=== PATIENT | male | born 1965 | race Caucasian/White ===

== ENCOUNTER 2020-01-10 16:03 | Inpatient (IN) | payer SELFPAY ==
[2020-01-10] MEDS ORDERED: ASPIRIN 81 MG CHEWABLE TABLET ONE (16:44)
[2020-01-10 16:47] LABS: Basophils % 0.9 % (0-1.3); Hematocrit 46.8 % (39.6-49.0); Lymphocytes % 19.1 % (15.3-44.8); MPV 10.5 fL (7.6-11.3); RBC Red Blood Cell Count 4.89 M/uL (4.33-5.43)
[2020-01-10 16:50] LABS: Protime INR 0.96
--- NOTE | 2020-01-10 17:17 | RAD REPORT ---
EXAM DESCRIPTION: CT - Chest Abdomen W Con - 01/10/2020 5:04 pm CLINICAL HISTORY: CHEST PAIN, abdominal pain, shortness of breath COMPARISON: No comparisons TECHNIQUE: During dynamic enhancement using 100 milliliters nonionic IV contrast, axial 5 millimeter thick images of the chest, abdomen and pelvis were obtained. Biphasic technique was utilized through the abdomen. Oral contrast was administered. All CT scans are performed using dose optimization technique as appropriate and may include automated exposure control or mA/KV adjustment according to patient size. FINDINGS: No suspicious mass or infiltrate in the lung parenchyma. Minimal early emphysema changes a re evident in the upper lung serrano. A few granulomatous calcifications are present. Largest calcifie d nodule is 11 mm in the right upper lung field at the aortic arch level. No pneumothorax or pleural effusion. No chest wall mass or abnormal axillary lymphadenopathy seen. Mediastinal and hilar regio ns show no mass or lymphadenopathy. No significant cardiac finding. No pericardial thickening or eff usion. The liver, spleen and pancreas show no focal findings. Liver attenuation is borderline fatty infiltra negro. Stones are evident in a contracted gallbladder. No biliary tree dilatation. No pericholecystic f luid. Symmetric renal function is seen with no hydronephrosis, mass or other significant finding. No adren al abnormalities. No dilated bowel loops or focal ball bowel wall thickening. No free air, free fluid or inflammatory stranding. No hernia, mass or bulky lymphadenopathy. No significant bone or vascular finding. IMPRESSION: CT chest imaging shows no suspicious mass, lymphadenopathy or other significant finding. Nonacute findings detailed in the body of the report. No acute CT abdomen or pelvis finding. Patient does have cholelithiasis but no definitive evidence fo r acute cholecystitis. Borderline to mild fatty infiltration of the liver.
--- NOTE | 2020-01-10 17:17 | RAD REPORT ---
EXAM DESCRIPTION: RAD - Chest Single View - 01/10/2020 4:48 pm CLINICAL HISTORY: CHEST PAIN COMPARISON: No remote imaging TECHNIQUE: AP portable chest image was obtained 01/10/2020 4:48 pm . FINDINGS: No peripheral mass or consolidation seen. Patient has numerous small granulomatous type ca lcifications scattered in the lung parenchyma. No mediastinal or hilar mass evident. Heart and vascul ature are normal. No measurable pleural effusion and no pneumothorax. No acute bone finding. Minimal scoliotic curvature seen. No acute aortic findings suspected. IMPRESSION: No acute cardiopulmonary process. Numerous small granulomatous calcifications seen in the lung parenchyma.
[2020-01-10 17:33] LABS: ALT/SGPT 305 U/L (12-78); AST/SGOT 330 U/L (15-37); Alkaline Phosphatase 148 U/L (45-117); BUN Blood Urea Nitrogen 8 mg/dL (7-18); Bicarbonate 24 mmol/L (21-32); Bilirubin Direct 0.6 mg/dL (0-0.2); Bilirubin Total 0.9 mg/dL (0.2-1.0); Lipase 772 U/L (73-393); NT PRO-BNP 157 pg/mL (<125); Potassium 4.2 mmol/L (3.5-5.1); Protein, Total 7.6 g/dL (6.4-8.2); Sodium Level 127 mmol/L (136-145); Troponin (Emerg Dept Use Only) < 0.02 ng/mL (0.0-0.045)
[2020-01-10 17:36] LABS: Glucose Level 723 mg/dL (74-106)
[2020-01-10] MEDS ORDERED: NA CHLORIDE 0.9% 2,000 ML ONE (17:48)
--- NOTE | 2020-01-10 19:43 | ER ---
Nurse's Notes [facility] Name: Gabriel Morales Age: 54 yrs Sex: Male : 1965 Arrival Date: 01/10/2020 Time: 16:05 Bed 5 Private MD: Diagnosis: Diabetes mellitus due to underlying condition with hyperglycemia;Chest pain, unspecified;Elevated liver enzymes Presentation: 01/09 16:15 Chief complaint: Patient states: chest pressure off and on for 2-3 weeks, has had em cough, clear sputum, today pressure became constant and also reports shortness of breath, denies fever, N/V/D, has lost 30 pounds in less than 2 months without trying. Coronavirus screen: Surgical mask placed on patient. Patient moved to private room, placed in contact and droplet isolation with eye protection until further assessment. Patient reports a cough. Patient reports shortness of breath or difficulty breathing. Patient denies measured and/or subjective temperature greater than 100.4F prior to today's visit. Patient denies travel on a cruise ship or to a country the [facility] currently lists as an affected area. Patient denies contact with known and/or suspected case of COVID-19. Ebola Screen: Patient negative for fever greater than or equal to 101.5 degrees Fahrenheit, and additional compatible Ebola Virus Disease symptoms Patient denies exposure to infectious person. Patient denies travel to an Ebola-affected area in the 21 days before illness onset. No symptoms or risks identified at this time. Initial Sepsis Screen: Does the patient meet any 2 criteria? No. Patient's initial sepsis screen is negative. Does the patient have a suspected source of infection? Yes: Productive cough/pneumonia. Risk Assessment: Do you want to hurt yourself or someone else? Patient reports no desire to harm self or others. Onset of symptoms was December 29, 2019. 16:15 Method Of Arrival: Wheelchair em 16:15 Acuity: ALEJANDRO 3 em Historical: - Allergies: 16:19 No Known Allergies; em - Home Meds: 16:19 None [Active]; em - PMHx: 16:19 None; em - PSHx: 16:19 None; em - Immunization history:: Adult Immunizations not up to date. - Social history:: Smoking status: Patient reports the use of cigarette tobacco products, smokes one pack cigarettes per day. Screenin:31 Abuse screen: Denies threats or abuse. Nutritional screening: No deficits noted. hb Tuberculosis screening: No symptoms or risk factors identified. Fall Risk None identified. Assessment: 16:32 Pain: Pain does not radiate. hb 16:32 Pain: Pain began 2-3 weeks. hb 16:35 General: Appears in no apparent distress. Behavior is calm, cooperative. Pain: Pain hb currently is 6 out of 10 on a pain scale. Neuro: Level of Consciousness is awake, alert, obeys commands, Oriented to person, place, time, situation. Cardiovascular: Reports chest pain, Heart tones S1 S2 present Capillary refill < 3 seconds Patient's skin is warm and dry. Respiratory: Airway is patent Respiratory effort is even, unlabored, Respiratory pattern is regular, symmetrical, Breath sounds are clear bilaterally. GI: No signs and/or symptoms were reported involving the gastrointestinal system. : No signs and/or symptoms were reported regarding the genitourinary system. EENT: No signs and/or symptoms were reported regarding the EENT system. Derm: Skin is pink, warm \T\ dry. Musculoskeletal: No signs and/or symptoms reported regarding the musculoskeletal system. 17:45 Reassessment: Patient appears in no apparent distress at this time. Patient and/or hb family updated on plan of care and expected duration. Pain level reassessed. Patient is alert, oriented x 3, equal unlabored respirations, skin warm/dry/pink. 18:30 Reassessment: Patient appears in no apparent distress at this time. Patient and/or hb family updated on plan of care and expected duration. Pain level reassessed. Patient is alert, oriented x 3, equal unlabored respirations, skin warm/dry/pink. 19:20 Reassessment: Patient appears in no apparent distress at this time. Patient and/or wh family updated on plan of care and expected duration. Pain level reassessed. Patient is alert, oriented x 3, equal unlabored respirations, skin warm/dry/pink. 20:35 Reassessment: Patient appears in no apparent distress at this time. No changes from previously documented assessment. Patient and/or family updated on plan of care and expected duration. Pain level reassessed. Patient is alert, oriented x 3, equal unlabored respirations, skin warm/dry/pink. Explained POC need for admit, MD at bedside. Vital Signs: 16:15 BP 159 / 93; Pulse 77; Resp 18; Temp 98.1(O); Pulse Ox 97% on R/A; Weight 67.13 kg; em Height 5 ft. 7 in. (170.18 cm); Pain 6/10; 17:45 BP 147 / 88; Pulse 76; Resp 15; Pulse Ox 99% on R/A; Pain 5/10; hb 18:38 BP 151 / 96; Pulse 63; Resp 17; Pulse Ox 98% on R/A; tw2 19:30 BP 164 / 95; Pulse 61; Resp 18; Pulse Ox 99% on R/A; wh 20:30 BP 150 / 95; Pulse 60; Resp 18; Pulse Ox 96% on R/A; wh 16:15 Body Mass Index 23.18 (67.13 kg, 170.18 cm) em ED Course: 16:05 Patient arrived in ED. mr 16:19 Triage completed. em 16:20 Arm band placed on. em 16:21 [facility]C [facility] snw 16:21 Zeus Brandon MD is Attending Physician. snw 16:31 Latricia Jung, RN is Primary Nurse. hb 16:31 Bed in low position. Call light in reach. cardiac monitor on. Pulse ox on. NIBP on. hb Warm blanket given. Verbal reassurance given. 16:32 Patient maintains SpO2 saturation greater than 95% on room air. hb 16:34 Inserted saline lock: 20 gauge in right forearm, using aseptic technique. Blood hb collected. 16:48 XRAY Chest (1 view) In Process Unspecified. EDMS 17:04 CT Chest Abdomen W/ Contrast In Process Unspecified. EDMS 19:41 Varun Boggs is Hospitalizing Provider. snw 21:30 No provider procedures requiring assistance completed. Patient admitted, IV remains in wh place. Administered Medications: 16:38 Drug: Aspirin Chewable Tablet 324 mg Route: PO; hb 17:41 Follow up: Response: No adverse reaction tw2 17:50 Drug: NS 0.9% 2000 ml Route: IV; Rate: 1 bolus; Site: right forearm; hb 20:41 Follow up: Response: No adverse reaction; IV Status: Completed infusion Outcome: 19:42 Decision to Hospitalize by Provider. snw 21:30 Admitted to ER Hold. Please see [facility] for further documentation. 21:30 Condition: stable 21:30 Instructed on the need for admit. 01/10 09:41 Patient left the ED. Signatures: Dispatcher [employer] Susan Epps, WEARING APPAREL FOLDER-C WEARING APPAREL FOLDER-Csnw AlyLiana mr Moser, Rubens, RN Mirlande Quevedo RN RN ss Baxter, Heather, RN RN Milly Mathew RN RN [facility] Jose Ahmadi
--- NOTE | 2020-01-10 19:43 | EDPHYS ---
Physician Documentation [facility] Name: Gabriel Morales Age: 54 yrs Sex: Male : 1965 Arrival Date: 01/10/2020 Time: 16:05 Bed 5 Private MD: ED Physician Zeus Brandon HPI: 01/09 16:31 This 54 yrs old Male presents to ER via Wheelchair with complaints of Chest snw Pressure. 16:31 The patient or guardian reports chest pain that is located primarily in the anterior snw chest wall. Onset: gradually. Associated signs and symptoms: Pertinent positives: cough, shortness of breath, Pertinent negatives: abdominal pain, lightheadedness, nausea, near syncope, palpitations, recent travel. The chest pain is described as a pressure. Duration: The patient or guardian reports multiple episodes, that wax and wane. Severity of pain: At its worst the pain was moderate. It is unknown whether or not the patient has had similar symptoms in the past. The patient has not recently seen a physician. smokes 1 ppd, smokes weed, + hepatitis C dx in the 90s, no treatment. Historical: - Allergies: 16:19 No Known Allergies; em - Home Meds: 16:19 None [Active]; em - PMHx: 16:19 None; em - PSHx: 16:19 None; em - Immunization history:: Adult Immunizations not up to date. - Social history:: Smoking status: Patient reports the use of cigarette tobacco products, smokes one pack cigarettes per day. ROS: 16:29 Constitutional: Negative for fever, chills, + large weight loss over past 2 months snw without trying, Eyes: Negative for injury, pain, redness, and discharge, ENT: Negative for injury, pain, and discharge, Neck: Negative for injury, pain, and swelling. 16:29 Abdomen/GI: Negative for abdominal pain, nausea, vomiting, diarrhea, and constipation, Back: Negative for injury and pain, : Negative for injury, bleeding, discharge, and swelling, MS/Extremity: Negative for injury and deformity, Skin: Negative for injury, rash, and discoloration, Neuro: Negative for headache, weakness, numbness, tingling, and seizure. 16:29 Cardiovascular: Positive for chest pain, of the chest. 16:29 Respiratory: Positive for cough, shortness of breath. Exam: 16:29 Constitutional: This is a well developed, well nourished patient who is awake, alert, snw and in no acute distress. Head/Face: Normocephalic, atraumatic. Eyes: Pupils equal round and reactive to light, extra-ocular motions intact. Lids and lashes normal. Conjunctiva and sclera are non-icteric and not injected. Cornea within normal limits. Periorbital areas with no swelling, redness, or edema. ENT: Nares patent. No nasal discharge, no septal abnormalities noted. Tympanic membranes are normal and external auditory canals are clear. Oropharynx with no redness, swelling, or masses, exudates, or evidence of obstruction, uvula midline. Mucous membranes moist. Neck: Trachea midline, no thyromegaly or masses palpated, and no cervical lymphadenopathy. Supple, full range of motion without nuchal rigidity, or vertebral point tenderness. No Meningismus. Chest/axilla: Normal chest wall appearance and motion. Nontender with no deformity. No lesions are appreciated. Cardiovascular: Regular rate and rhythm with a normal S1 and S2. No gallops, murmurs, or rubs. Normal PMI, no JVD. No pulse deficits. Respiratory: Lungs have equal breath sounds bilaterally, clear to auscultation and percussion. No rales, rhonchi or wheezes noted. No increased work of breathing, no retractions or nasal flaring. Abdomen/GI: Soft, non-tender, with normal bowel sounds. No distension or tympany. No guarding or rebound. No evidence of tenderness throughout. Back: No spinal tenderness. No costovertebral tenderness. Full range of motion. Skin: Warm, dry with normal turgor. Normal color with no rashes, no lesions, and no evidence of cellulitis. MS/ Extremity: Pulses equal, no cyanosis. Neurovascular intact. Full, normal range of motion. Neuro: Awake and alert, GCS 15, oriented to person, place, time, and situation. Cranial nerves II-XII grossly intact. Motor strength 5/5 in all extremities. Sensory grossly intact. Cerebellar exam normal. Normal gait. Psych: Awake, alert, with orientation to person, place and time. Behavior, mood, and affect are within normal limits. 16:34 ECG was reviewed by the Attending Physician. snw Vital Signs: 16:15 BP 159 / 93; Pulse 77; Resp 18; Temp 98.1(O); Pulse Ox 97% on R/A; Weight 67.13 kg; em Height 5 ft. 7 in. (170.18 cm); Pain 6/10; 17:45 BP 147 / 88; Pulse 76; Resp 15; Pulse Ox 99% on R/A; Pain 5/10; hb 18:38 BP 151 / 96; Pulse 63; Resp 17; Pulse Ox 98% on R/A; tw2 19:30 BP 164 / 95; Pulse 61; Resp 18; Pulse Ox 99% on R/A; wh 20:30 BP 150 / 95; Pulse 60; Resp 18; Pulse Ox 96% on R/A; wh 16:15 Body Mass Index 23.18 (67.13 kg, 170.18 cm) em MDM: 16:29 Patient medically screened. snw 19:40 ECG:. The patient was given aspirin in the Emergency Department. Data reviewed: vital snw signs, nurses notes, lab test result(s), EKG, radiologic studies. Data interpreted: Pulse oximetry: on room air is 98 %. Interpretation: normal. Counseling: I had a detailed discussion with the patient and/or guardian regarding: the historical points, exam findings, and any diagnostic results supporting the discharge/admit diagnosis, the presence of at least one elevated blood pressure reading (>120/80) during this emergency department visit, lab results, radiology results, the need for further work-up and treatment in the hospital. Physician consultation: Varun Boggs was called at 19:40, was contacted at 19:40, regarding admission, to the telemetry unit. 01/09 16:23 Order name: Basic Metabolic Panel snw 01/09 16:23 Order name: CBC with Diff; Complete Time: 16:51 snw 01/09 16:23 Order name: LFT's; Complete Time: 17:36 snw 01/09 16:23 Order name: Magnesium; Complete Time: 17:36 snw 01/09 16:23 Order name: NT PRO-BNP; Complete Time: 17:36 snw 01/09 16:23 Order name: PT-INR; Complete Time: 16:51 snw 01/09 16:23 Order name: Troponin (emerg Dept Use Only); Complete Time: 17:36 snw 01/09 16:23 Order name: Basic Metabolic Panel; Complete Time: 17:36 EDMS 01/09 16:43 Order name: Lipase; Complete Time: 17:36 EDMS 01/09 16:58 Order name: CREATININE WHOLE BLOOD; Complete Time: 17:10 EDMS 01/09 18:31 Order name: Alpha Fetoprotein-Tumor Marker EDMS 01/09 19:41 Order name: Glucose, Ancillary Testing; Complete Time: 19:42 EDMS 01/09 16:23 Order name: XRAY Chest (1 view); Complete Time: 17:19 snw 01/09 16:23 Order name: EKG; Complete Time: 16:24 snw 01/09 16:23 Order name: Cardiac monitoring; Complete Time: 16:40 snw 01/09 16:23 Order name: EKG - Nurse/Tech; Complete Time: 16:40 snw 01/09 16:23 Order name: IV Saline Lock; Complete Time: 16:40 snw 01/09 16:23 Order name: CT Chest Abdomen W/ Contrast; Complete Time: 17:19 snw 01/09 23:57 Order name: Troponin I; Complete Time: 23:58 EDMS 01/09 23:57 Order name: Thyroid Stimulating Hormone; Complete Time: 23:58 EDMS 01/10 05:47 Order name: Comprehensive Metabolic Panel EDMS 01/10 05:47 Order name: Phosphorus EDMS 01/10 05:47 Order name: Lipid Profile EDMS 01/10 05:47 Order name: Magnesium EDMS 01/10 06:06 Order name: CBC with Automated Diff EDMS 01/10 06:38 Order name: Manual Differential EDMS 01/09 16:23 Order name: Labs collected and sent; Complete Time: 16:40 snw 01/09 16:23 Order name: O2 Per Protocol; Complete Time: 16:40 snw 01/09 16:23 Order name: O2 Sat Monitoring; Complete Time: 16:40 snw 01/09 19:16 Order name: FSBS; Complete Time: 19:30 snw EC:34 Rate is 75 beats/min. Rhythm is regular. QRS [place] is Normal. CO interval is normal. QRS snw interval is normal. Clinical impression: NSR w/ Non-specific ST/T Changes. Administered Medications: 16:38 Drug: Aspirin Chewable Tablet 324 mg Route: PO; hb 17:41 Follow up: Response: No adverse reaction tw2 17:50 Drug: NS 0.9% 2000 ml Route: IV; Rate: 1 bolus; Site: right forearm; hb 20:41 Follow up: Response: No adverse reaction; IV Status: Completed infusion Disposition: 01/10/20 19:42 Hospitalization ordered by Varun Boggs for Observation. Preliminary diagnosis are Diabetes mellitus due to underlying condition with hyperglycemia, Chest pain, unspecified, Elevated liver enzymes. - Bed requested for Telemetry/MedSurg (observation). - Status is Observation. ss - Condition is Stable. - Problem is new. - Symptoms are unchanged. Addendum: 01/12/2020 18:18 Co-signature as Attending Physician, Zeus Brandon MD. m a2 Signatures: Dispatcher [employer] EDIL Susan Downs, COMPUTER SYSTEMS AUDITOR-C COMPUTER SYSTEMS AUDITOR-Csnw Rubens Moser, ESHA BALBUENA Mirlande Powell RN RN Jana Franco RN RN tl1 Latricia Jung RN RN Zeus Brandon MD MD maMilly Cardoza RN 2 Jose Ahmadi Corrections: (The following items were deleted from the chart) 01/09 16:43 16:34 LIPASE+C.LAB.BRZ ordered. EDIL EDMS 18:31 16:33 Miscellaneous Lab Test+R.LAB.BRZ ordered. EDIL EDMS 21:27 19:42 Hospitalization Ordered by Varun Boggs for Observation. Preliminary diagnosis tl1 is Diabetes mellitus due to underlying condition with hyperglycemia; Chest pain, unspecified; Elevated liver enzymes. Bed requested for Telemetry/MedSurg (observation). Status is Observation. Condition is Stable. Problem is new. Symptoms are unchanged. snw 01/10 05:45 01/09 21:27 01/10/2020 19:42 Hospitalization Ordered by Varun Boggs for Observation. tl1 Preliminary diagnosis is Diabetes mellitus due to underlying condition with hyperglycemia; Chest pain, unspecified; Elevated liver enzymes. Bed requested for [facility] ER HOLD. Status is Observation. Condition is Stable. Problem is new. Symptoms are unchanged. tl1 01/10 09:41 05:45 01/10/2020 19:42 Hospitalization Ordered by Varun Boggs for Observation. ss Preliminary diagnosis is Diabetes mellitus due to underlying condition with hyperglycemia; Chest pain, unspecified; Elevated liver enzymes. Bed requested for Telemetry/MedSurg (observation). Status is Observation. Condition is Stable. Problem is new. Symptoms are unchanged. tl1
--- NOTE | 2020-01-10 20:13 | EKG ---
Test Date: 2020-01-10 Test Time: 16:32:49 Interior Plant Caretaker: ABHIJEET MEASUREMENT RESULTS: Intervals: Rate: 70 [place]: 138 QRSD: 100 QT: 410 QTc: 442 [place]: P: 74 [place]: 138 QRS: 74 T: 65 INTERPRETIVE STATEMENTS: Normal sinus rhythm Normal ECG No previous ECG available for comparison Electronically Signed On 01-10-20 20:13:09 CDT by Mega Nichols
--- NOTE | 2020-01-10 21:09 | P.HP ---
Certification for Inpatient Patient admitted to: Inpatient With expected LOS: >2 Midnights Practitioner: I am a practitioner with admitting privileges, knowledge of patient current condition, hospital course, and medical plan of care. Services: Services provided to patient in accordance with Admission requirements found in Title 42 Section 412.3 of the Code of Federal Regulations Patient History Date of Service: 01/10/20 Reason for admission: Increased thirst, chest pain. History of Present Illness: 54-year-old gentleman with a history of hepatitis-C presented emergency depa rtment with a complaint of chest pain of onset this morning. Patient also report increased thirst and increased urination. He reports about 30 lb weight loss over a period of 1 month. His lab work in the ED shows severe hyperglycemia with blood glucose up to 700. His liver enzymes are also elevated. Troponin is negative. EKG shows nonspecific ST T wave changes. Patient is being admitted for chest pain rule out and management of new onset diabetes with hyperglycemia. - Past Medical/Surgical History -: Chronic hepatitis-C -: Orthopedic surgery - Family History Mother -: Diabetes - Social History Smoking Status: Current every day smoker Alcohol use: Yes CD- Drugs: No Place of Residence: Home Review of Systems Other: Patient denied abdominal pain, he denied any nausea or vomiting or diarrhea. He denied any fever. He denied any cough. Except as documented, all other systems reviewed and negative. Physical Examination - Physical Exam General: Alert, In no apparent distress, Oriented x3 HEENT: Mucous membr. moist/pink, Sclerae nonicteric Neck: Supple, JVD not distended Respiratory: Clear to auscultation bilaterally, Normal air movement Cardiovascular: No edema, Regular rate/rhythm, Normal S1 S2 Capillary refill: <2 Seconds Gastrointestinal: Normal bowel sounds, Soft and benign, Non-distended, No tenderness Musculoskeletal: No swelling, No erythema Integumentary: No rashes Neurological: Normal speech, Normal strength at 5/5 x4 extr - Studies Laboratory Data (last 24 hrs) 01/10/20 16:34: Lipase Cancelled 01/10/20 16:30: PT 11.3, INR 0.96 01/10/20 16:30: WBC 5.2, Hgb 15.3, Hct 46.8, Plt Count 101 L 01/10/20 16:30: Sodium 127 L, Potassium 4.2, BUN 8, Creatinine 1.07, Glucose 723 H*, Magnesium 2.0, Total Bilirubin 0.9, AST 330 H*, ALT 305 H*, Alkaline Phosphatase 148 H, Lipase 772 H Assessment and Plan - Problems (Diagnosis) (1) Chest pain Current Visit: Yes Status: Acute (2) Diabetes mellitus Current Visit: Yes Status: Acute (3) Elevated lipase Current Visit: Yes Status: Acute (4) Hepatitis C infection Current Visit: Yes Status: Acute (5) Essential hypertension Current Visit: Yes Status: Acute - Plan Admit to the medical floor. IV hydration with normal saline. Start insulin sliding scale and Lantus insulin Check hemoglobin A1c Trend troponin Check lipid profile. Start aspirin. Start metoprolol and TREVOR inhibitor - Advance Directives Does patient have a Living Will: No Does patient have a Durable POA for Healthcare: No
[2020-01-10 22:50] VITALS: BMI 23.1
[2020-01-10] MEDS ORDERED: GLUCAGON 1 MG/VIAL IM PRN (22:53)
[2020-01-10] MEDS ORDERED: ONDANSETRON 4 MG/2 ML VIAL IV PRN (22:53)
[2020-01-10] MEDS ORDERED: D50W 25 GM/50 ML SYRINGE/VIAL IV PRN (22:53)
[2020-01-10] MEDS: NA CHLORIDE 0.9% 1,000 ML IV SCH (22:53)
[2020-01-10] MEDS ORDERED: NITROGLYCERIN 0.4 MG/TAB SL ONE (23:43)
[2020-01-10] MEDS ORDERED: NA CHLORIDE 0.9% 1,000 ML ONE (23:45)
[2020-01-10] MEDS: NITROGLYCERIN 0.4 MG/TAB SL PRN (23:45)
[2020-01-10 23:56] LABS: Troponin I < 0.02 ng/mL (0.0-0.045)
[2020-01-11] MEDS: NITROGLYCERIN 0.4 MG/TAB SL PRN
[2020-01-11 05:41] LABS: ALT/SGPT 246 U/L (12-78); AST/SGOT 243 U/L (15-37); Albumin 2.6 g/dL (3.4-5.0); Alkaline Phosphatase 123 U/L (45-117); BUN Blood Urea Nitrogen 7 mg/dL (7-18); Bicarbonate 21 mmol/L (21-32); Bilirubin Total 0.9 mg/dL (0.2-1.0); Glucose Level 338 mg/dL (74-106); HDL Cholesterol 17 mg/dL (40-60); LDL Cholesterol, Calculated 74 (<130); Magnesium 1.8 mg/dL (1.8-2.4); Phosphorus 2.6 mg/dL (2.5-4.9); Protein, Total 6.5 g/dL (6.4-8.2); Sodium Level 134 mmol/L (136-145)
[2020-01-11 06:06] LABS: Absolute Lymphocytes (CBC) 1.4 K/uL (0.7-4.9); Hematocrit 43.4 % (39.6-49.0); Lymphocytes % 27.8 % (15.3-44.8); MPV 10.9 fL (7.6-11.3)
[2020-01-11 06:38] LABS: Blood Morphology Comment NOT SEEN (NOT SEEN); Platelet Estimate DECR
[2020-01-11] MEDS: ENOXAPARIN 40 MG/0.4 ML SQ SCH ×2 (09:00→10:16)
--- NOTE | 2020-01-11 09:43 | RAD REPORT ---
EXAM DESCRIPTION: US - Liver Only - 01/11/2020 9:23 am CLINICAL HISTORY: high LFTS COMPARISON: No comparisons FINDINGS: The liver demonstrates diffuse fatty infiltration.Diffusely heterogenous appearance to the liver parenchyma seen.No focal liver lesion or intrahepatic biliary dilatation.No evidence of portal vein thrombosis. Spleen is moderately enlarged. Gallstones are present gallbladder. IMPRESSION: Fatty liver with mild liver enlargement. Cholelithiasis. Moderate splenomegaly.
[2020-01-11] MEDS: NA CHLORIDE 0.9% 1,000 ML IV SCH ×3 (10:13→21:47)
[2020-01-11] MEDS: MAGNESIUM SULFATE 1 gm IVPB 1 GM/100 ML BAG IV ONE ×2 (10:14→10:15)
[2020-01-11] MEDS: ASPIRIN EC 81 MG TAB PO SCH (10:14)
[2020-01-11] MEDS: lisinopriL 10 MG TAB PO SCH (10:14)
[2020-01-11] MEDS: METOPROLOL TAR 50 MG TAB PO SCH ×2 (10:15→21:42)
[2020-01-11] MEDS: INSULIN GLARGINE 100 UNITS/ML SQ SCH (10:16)
[2020-01-11] MEDS: INSULIN -REGULAR HUMAN 50 UNIT/0.5 ML ML SQ SCH ×4 (10:17→21:43)
--- NOTE | 2020-01-11 11:15 | EKG ---
Test Date: 2020-01-10 Test Time: 23:09:59 International Tax Manager: SUOTH MEASUREMENT RESULTS: Intervals: Rate: 59 HI: 114 QRSD: 90 QT: 436 QTc: 431 [place]: P: 53 HI: 114 QRS: 73 T: 50 INTERPRETIVE STATEMENTS: Sinus bradycardia Otherwise normal ECG Compared to ECG 01/10/2020 16:33:14 Sinus rhythm no longer present ST (T wave) deviation no longer present Electronically Signed On 01-11-20 11:13:31 CDT by Mega Nichols
--- NOTE | 2020-01-11 11:15 | EKG ---
Test Date: 2020-01-10 Test Time: 16:33:14 Web Mobile Designer: ABHIJEET MEASUREMENT RESULTS: Intervals: Rate: 75 NC: 140 QRSD: 96 QT: 408 QTc: 455 Kellogg: P: 73 NC: 140 QRS: 75 T: 81 INTERPRETIVE STATEMENTS: Normal sinus rhythm Possible Left atrial enlargement ST abnormality, possible digitalis effect Abnormal ECG Compared to ECG 01/10/2020 16:32:49 ST (T wave) deviation now present Electronically Signed On 01-11-20 11:13:41 CDT by Mega Nichols
--- NOTE | 2020-01-11 14:06 | P.PN ---
Subjective Date of Service: 01/11/20 Chief Complaint: Increased thirst, chest pain. Subjective: Improving (Patient is doing well. He is tolerating diet. He has been started on lantus after a new diagnosis of Diabetes mellitus) Physical Examination - Vital Signs Temperature: 97.3 F Blood Pressure: 135/70 Pulse: 56 Respirations: 16 Pulse Ox (%): 98 - Physical Exam General: Alert, In no apparent distress, Cooperative, Other (No jaundice) HEENT: Atraumatic, Normocephalic, EOMI Neck: Supple Respiratory: Clear to auscultation bilaterally, Normal air movement Cardiovascular: No edema, Normal pulses, Regular rate/rhythm, Normal S1 S2 Gastrointestinal: Normal bowel sounds, Soft and benign, Non-distended Musculoskeletal: No clubbing, No swelling, No contractures, No erythema, No tenderness, No warmth Integumentary: No rashes, No breakdown, No tenderness/swelling, No erythema, No warmth, No cyanosis Neurological: Normal speech, Sensation intact, Normal reflexes 2+, Normal affect - Studies Laboratory Data (last 24 hrs) 01/10/20 16:34: Lipase Cancelled 01/10/20 16:30: PT 11.3, INR 0.96 01/10/20 16:30: WBC 5.2, Hgb 15.3, Hct 46.8, Plt Count 101 L 01/10/20 16:30: Sodium 127 L, Potassium 4.2, BUN 8, Creatinine 1.07, Glucose 723 H*, Magnesium 2.0, Total Bilirubin 0.9, AST 330 H*, ALT 305 H*, Alkaline Phosphatase 148 H, Lipase 772 H Assessment & Plan - Problems (Diagnosis) (1) Diabetes mellitus Current Visit: Yes Status: Acute (2) Elevated lipase Current Visit: Yes Status: Acute (3) Essential hypertension Current Visit: Yes Status: Acute (4) Hepatitis C infection Current Visit: Yes Status: Acute Physician Review Additional Text: Assessment Patient is a 54 year old male with a known PMH of Hepatitis C who presented with chest pain. First 2 EKGs were unremarkable but the 3rd showed Possible Left atrial enlargement and mild ST abnormalities. He has a 2-D echo pending. Additional work up revealed severe hyperglycemia. He was started on insulin. A1c pending. He was also found to have elevated LFTs. Liver US showed fatty liver, cholelithiasis and splenomegaly. Chest pain New onset diabetes mellitus and hyperglycemia Hepatitis C Transaminitis PLAN Continue telemetry until ACS is ruled out Follow up 2nd troponin Follow up 2-D echo Start insulin sliding scale, continue lantus 10 untis QAM Check A1c Consult surgery for possible gallbladder removal Check HepC viral load
[2020-01-11] MEDS: ACETAMIN/CAFFEINE/BUTALB TAB PO PRN (16:19)
[2020-01-12] MEDS: NA CHLORIDE 0.9% 1,000 ML IV SCH ×2 (01:33→12:38)
[2020-01-12 06:30] LABS: BUN Blood Urea Nitrogen 8 mg/dL (7-18); Bicarbonate 23 mmol/L (21-32); Glucose Level 251 mg/dL (74-106); Magnesium 1.8 mg/dL (1.8-2.4); Potassium 3.4 mmol/L (3.5-5.1); Sodium Level 136 mmol/L (136-145)
[2020-01-12] MEDS ORDERED: POTASSIUM 25 MEQ EFFERV TAB PO ONE (06:37)
[2020-01-12] MEDS ORDERED: MAGNESIUM SULFATE 1 gm IVPB 1 GM/100 ML BAG IV ONE (06:38)
[2020-01-12] MEDS: ASPIRIN EC 81 MG TAB PO SCH (08:22)
[2020-01-12] MEDS: lisinopriL 10 MG TAB PO SCH (08:22)
[2020-01-12] MEDS: METOPROLOL TAR 50 MG TAB PO SCH ×2 (08:22→20:52)
[2020-01-12] MEDS: INSULIN GLARGINE 100 UNITS/ML SQ SCH (08:23)
[2020-01-12] MEDS: INSULIN -REGULAR HUMAN 50 UNIT/0.5 ML ML SQ SCH ×4 (08:24→20:53)
[2020-01-12] MEDS ORDERED: INSULIN GLARGINE 100 UNITS/ML SQ ONE (08:30)
[2020-01-12] MEDS: ENOXAPARIN 40 MG/0.4 ML SQ SCH (08:39)
--- NOTE | 2020-01-12 08:50 | ECHO ---
HEIGHT: 5 ft 7 in WEIGHT: 148 lb 0 oz DATE OF STUDY: 01/11/[address]: anselmo scott 2-DIMENSIONAL: YES M.MODE: YES DOPPLER: YES COLOR FLOW: YES TDS: NO PORTABLE: NO DEFINITY: NO BUBBLE STUDY: NO DIAGNOSIS: CHEST PAIN/ HYPERTENSION CARDIAC HISTORY: CATHERIZATION: NO SURGERY: NO PROSTHETIC VALVE: NO PACEMAKER: NO MEASUREMENTS (cm) DIASTOLIC (NORMALS) SYSTOLIC (NORMALS) IVSd 0.8 (0.6-1.2) LA Diam 3.5 (1.9-4.0) LVEF 69% LVIDd 4.9 (3.5-5.7) LVIDs 3.0 (2.0-3.5) %FS 39% LVPWd 0.9 (0.6-1.2) Ao Diam 2.6 (2.0-3.7) 2 DIMENSIONAL ASSESSMENT: RIGHT ATRIUM: NORMAL LEFT ATRIUM: NORMAL RIGHT VENTRICLE: NORMAL LEFT VENTRICLE: NORMAL TRICUSPID VALVE: NORMAL MITRAL VALVE: NORMAL PULMONIC VALVE: NORMAL AORTIC VALVE: SCLEROSIS PERICARDIAL EFFUSION: NONE AORTIC ROOT: NORMAL LEFT VENTRICULAR WALL MOTION: NORMAL. DOPPLER/COLOR FLOW: NORMAL. COMMENTS: AORTIC SCLEROSIS WITH NO STENOSIS. MIILD TRICUSPID REGURGITATION - NORMAL RIGHT VENTRICULAR SYSTOLIC PRESSURE. NORMAL LEFT VENTRICULAR SIZE AND FUNCTION. TECHNOLOGIST: EAN DE LA CRUZ
[2020-01-12 09:06] LABS: Urine Appearance CLEAR; Urine Bilirubin NEGATIVE (NEG); Urine Blood NEGATIVE (NEG); Urine Color DK YELLOW; Urine Glucose 3+ (NEG); Urine Protein NEGATIVE (NEG); Urine Specific Gravity >=1.030 (1.005-1.030); Urine pH 5.5 (5.0-7.0)
[2020-01-12 09:10] LABS: Urine Microscopic Reflex ORDER UMIC
[2020-01-12 09:17] LABS: Urine Bacteria <20 /HPF (NONE SEEN); Urine Culture Reflex Order NOT NEEDED; Urine RBC <5 /HPF (NONE SEEN)
--- NOTE | 2020-01-12 14:53 | P.PN ---
Subjective Date of Service: 01/12/20 Chief Complaint: Increased thirst, chest pain. Subjective: No new changes (No acute events overnight. Patient is chest pain- free. He's still requiring high dose of correctional insulin. Lantus increased from 10 to 25 units daily. He also has HepC viral load pending.) Physical Examination - Vital Signs Temperature: 97.5 F Blood Pressure: 144/83 Pulse: 69 Respirations: 18 Pulse Ox (%): 95 - Physical Exam General: Alert, In no apparent distress, Cooperative HEENT: Atraumatic, Normocephalic, EOMI Neck: Supple Respiratory: Clear to auscultation bilaterally, Normal air movement Cardiovascular: No edema, Normal pulses, Regular rate/rhythm, Normal S1 S2 Gastrointestinal: Normal bowel sounds, No tenderness, Distended, Hepatosple nomegaly Musculoskeletal: No clubbing, No swelling, No contractures, No erythema, No tenderness, No warmth Integumentary: Other (tattooes ) Neurological: Normal speech, Sensation intact, Normal affect Assessment & Plan - Problems (Diagnosis) (1) Diabetes mellitus Current Visit: Yes Status: Acute (2) Elevated lipase Current Visit: Yes Status: Acute (3) Essential hypertension Current Visit: Yes Status: Acute (4) Hepatitis C infection Current Visit: Yes Status: Acute Physician Review Additional Text: Assessment Patient is a 54 year old male with a known PMH of Hepatitis C who presented with chest pain. ACS was ruled out. He has a 2-D echo showed preserved LVEF and mild aortic sclerosis. However, he was severely hyperglycemic with BG 773. He was started on insulin. A1c 12.8. He was also found to have elevated LFTs. Liver US showed fatty liver, cholelithiasis and splenomegaly. Chest pain New onset diabetes mellitus and hyperglycemia Hepatitis C Transaminitis PLAN Continue telemetry Increase lantus to 25 units QAM along with insulin sliding scale. CM on board to assist with resources Follow up HepC viral load Patient can be discharged tomorrow.
[2020-01-13] MEDS: ACETAMIN/CAFFEINE/BUTALB TAB PO PRN (00:16)
[2020-01-13] MEDS: NA CHLORIDE 0.9% 1,000 ML IV SCH ×2 (01:17)
[2020-01-13 05:24] VITALS: O2SAT 96
[2020-01-13 05:58] LABS: BUN Blood Urea Nitrogen 8 mg/dL (7-18); Bicarbonate 28 mmol/L (21-32); Glucose Level 250 mg/dL (74-106); Magnesium 1.9 mg/dL (1.8-2.4); Potassium 4.1 mmol/L (3.5-5.1); Sodium Level 138 mmol/L (136-145)
[2020-01-13] MEDS ORDERED: INSULIN GLARGINE 100 UNITS/ML SQ SCH (08:00)
[2020-01-13] MEDS: INSULIN -REGULAR HUMAN 50 UNIT/0.5 ML ML SQ SCH ×2 (08:29→11:26)
[2020-01-13] MEDS: METOPROLOL TAR 50 MG TAB PO SCH (08:31)
[2020-01-13] MEDS: lisinopriL 10 MG TAB PO SCH (08:32)
[2020-01-13 08:36] VITALS: BP 130/82
[2020-01-13] MEDS ORDERED: INSULIN GLARGINE 100 UNITS/ML SQ ONE (08:45)
[2020-01-13] MEDS: ENOXAPARIN 40 MG/0.4 ML SQ SCH (08:49)
[2020-01-13] MEDS: ASPIRIN EC 81 MG TAB PO SCH (08:49)
--- NOTE | 2020-01-13 10:38 | P.DS ---
Admission Date: 01/10/20 Discharge Date: 01/13/20 Disposition: ROUTINE DISCHARGE Discharge Condition: GOOD Reason for Admission: Increased thirst, chest pain. - Problems (1) Diabetes mellitus Current Visit: Yes Status: Acute (2) Elevated lipase Current Visit: Yes Status: Acute (3) Essential hypertension Current Visit: Yes Status: Acute (4) Hepatitis C infection Current Visit: Yes Status: Acute Hospital Course: Patient is a 54 year old male with known PMH of Hep C admitted with chest pain, polyuria and polydipsia. He was severely hyperglycemic with BG 773 and was diagnosed with new onset diabetes mellitus. He was started on lantus, which will be changed to NPH since he lacks insurance. Hep C viral load were checked, results are still pending. ACS work up was negative. The rest of his hospital course was unremarkable. Vital Signs/Physical Exam: Temp Pulse Resp BP Pulse Ox 98.2 F 60 18 130/82 96 01/13/20 04:00 01/13/20 08:32 01/13/20 04:00 01/13/20 08:32 01/13/20 04:00 General: Alert, In no apparent distress, Cooperative HEENT: Atraumatic, Normocephalic, EOMI Neck: Supple Respiratory: Clear to auscultation bilaterally, Normal air movement Cardiovascular: No edema, Normal pulses, Regular rate/rhythm, Normal S1 S2 Gastrointestinal: Normal bowel sounds, Soft and benign, Non-distended, No ascites Musculoskeletal: No clubbing, No swelling, No contractures, No erythema, No tenderness, No warmth Integumentary: No rashes, No breakdown, No significant lesion, No tend erness/swelling, No erythema, No warmth, No cyanosis Neurological: Normal speech, Sensation intact, Normal affect Laboratory Data at Discharge: WBC 5.0 K/uL (4.3-10.9) 01/11/20 04:25 Hgb 14.7 g/dL (13.6-17.9) 01/11/20 04:25 Hct 43.4 % (39.6-49.0) 01/11/20 04:25 Plt Count 92 K/uL (152-406) L 01/11/20 04:25 PT 11.3 SECONDS (9.5-12.5) 01/10/20 16:30 INR 0.96 01/10/20 16:30 Sodium 138 mmol/L (136-145) 01/13/20 04:58 Potassium 4.1 mmol/L (3.5-5.1) 01/13/20 04:58 BUN 8 mg/dL (7-18) 01/13/20 04:58 Creatinine 0.68 mg/dL (0.55-1.3) 01/13/20 04:58 Glucose 250 mg/dL (74-106) H 01/13/20 04:58 Phosphorus 2.6 mg/dL (2.5-4.9) 01/11/20 04:25 Magnesium 1.9 mg/dL (1.8-2.4) 01/13/20 04:58 Total Bilirubin 0.9 mg/dL (0.2-1.0) 01/11/20 04:25 AST 243 U/L (15-37) H 01/11/20 04:25 ALT 246 U/L (12-78) H 01/11/20 04:25 Alkaline Phosphatase 123 U/L (45-117) H 01/11/20 04:25 Troponin I < 0.02 ng/mL (0.0-0.045) 01/11/20 14:45 Triglycerides 160 mg/dL (<150) H 01/11/20 04:25 Cholesterol 123 mg/dL (<200) 01/11/20 04:25 HDL Cholesterol 17 mg/dL (40-60) L 01/11/20 04:25 Cholesterol/HDL Ratio 7.24 01/11/20 04:25 Lipase Cancelled 01/10/20 16:34 Home Medications: Insulin NPH Human [Novolin N (Humulin N)*] 20 units SQ BID #20 ml 01/13/20 Metoprolol Tartrate [Lopressor*] 25 mg PO BID #60 tab 01/13/20 Nitroglycerin [Nitrostat*] 0.4 mg SL UD PRN #100 tab 01/13/20 lisinopriL [Prinivil*] 10 mg PO DAILY #30 tab 01/13/20 New Medications: Metoprolol Tartrate [Lopressor*] 25 mg PO BID #60 tab Nitroglycerin [Nitrostat*] 0.4 mg SL UD PRN #100 tab PRN Reason: Pain Scale 2-4 (Mild) Insulin NPH Human [Novolin N (Humulin N)*] 20 units SQ BID #20 ml lisinopriL [Prinivil*] 10 mg PO DAILY #30 tab Diet: ADA
[2020-01-13 10:46] VITALS: TEMP 98.3
[2020-01-14] MEDS ORDERED: NPH (HUMAN) 100 UNITS/ML INSULIN SQ SCH (09:00)
== END 2020-01-13 11:49 | disposition home or self-care (01) | DRG 639 ==
LOC: ER 16:03 → ERHOLD 21:16 → 2ND 01-11 09:04
PROVIDERS: ADMIT Internal Medicine; ATTEND Internal Medicine
DX: E11.65 Type 2 diabetes mellitus with hyperglycemia (principal); B19.20 Unspecified viral hepatitis C without hepatic coma; I10 Essential (primary) hypertension; F17.210 Nicotine dependence, cigarettes, uncomplicated; R07.9 Chest pain, unspecified; Z79.4 Long term (current) use of insulin; Z79.899 Other long term (current) drug therapy
CPT/HCPCS: 36415; 71045; 71260; 74160; 76705; 80048; 80053; 80061; 80076; 81003; 81015; 82105; 82565; 82947; 83036; 83690; 83735; 83880; 84100; 84132; 84443; 84484; 85025; 85610; 87522; 93005; 93306; 94760; 96360; 96361; 99285; J1650; J1815; J3475; J7030; Q9967